=== PATIENT | female | born 1975 | race Caucasian/White ===

== ENCOUNTER 2019-02-18 16:00 | Inpatient (IN) | payer MEDICAID ==
--- NOTE | 2019-02-18 16:52 | ED ---
Psychiatric Complaint - HPI Summary HPI Summary: Patient is a 43yo F presenting to the ED with suicidal ideation. Patient states she has been feeling this way for quite some time, however has had 2 attempted overdoses in the past 2 days. She states she has had 2 attempted overdoses using her gabapentin. She states it was worse yesterday as it was Mother's Day and her 5 kids were taken away from her by her ex- recently. She is also not been on her bipolar medications as she cannot afford the medications. She does not currently have health insurance and has been without these medications for several months. She endorses severe depression and anxiety. She does take Xanax 0.5 mg 4 times daily, but has also not been taking this. She has a friend at bedside. She denies any alcohol or drug use. She does not currently have a counselor and would like to see somebody today. She is also requesting an admission due to her severe depression, suicidal ideation and suicidal attempts. - History Of Current Complaint Chief Complaint: EDSuicidal Time Seen by Provider: 02/18/19 16:31 Hx Obtained From: Patient ?: No Onset/Duration: Sudden Onset Timing: Constant Severity Initially: Severe Severity Currently: Severe Aggravating Factor(s): Nothing Alleviating Factor(s): Nothing Associated Signs And Symptoms: Positive: Negative Related History: Positive For: Prior Psychiatric Issues Has Suicidal: Reports: Thoughts, With A Plan, Demonstrates Gesture - Risk Factor(s) Completed Suicide Risk Factors: Negative - Allergies/Home Medications Allergies/Adverse Reactions: Allergies Allergy/AdvReac Type Severity Reaction Status Date / Time codeine Allergy Rash Verified 02/18/19 16:06 Sulfa (Sulfonamide Allergy Rash Verified 02/18/19 16:06 Antibiotics) nuts Allergy Swelling Uncoded 02/18/19 16:06 Of Face,Lips,& Throat PMH/Surg Hx/FS Hx/Imm Hx Previously Healthy: Yes - Immunization History Hx Pertussis Vaccination: No Immunizations Up to Date: Yes Infectious Disease History: No Infectious Disease History: Denies: Traveled Outside the [place] in Last 30 Days - Social History Occupation: Unemployed Lives: With Family Alcohol Use: None Hx Substance Use: No Substance Use Type: Reports: None Hx Tobacco Use: No Smoking Status (MU): Never Smoked Tobacco Review of Systems Constitutional: Negative Negative: Fever, Chills, Fatigue, Skin Diaphoresis Negative: Palpitations, Chest Pain Negative: Shortness Of Breath, Cough Negative: Abdominal Pain, Vomiting, Diarrhea, Nausea Genitourinary: Negative Positive: no symptoms reported, see HPI Negative: Arthralgia, Myalgia Skin: Negative Positive: Anxious, Depressed All Other Systems Reviewed And Are Negative: Yes - consciousness Physical Exam Triage Information Reviewed: Yes Vital Signs On Initial Exam: Initial Vitals Temp Pulse Resp BP Pulse Ox 97.8 F 78 18 178/84 97 02/18/19 16:02 02/18/19 16:02 02/18/19 16:02 02/18/19 16:02 02/18/19 16:02 Vital Signs Reviewed: Yes Appearance: Positive: Well-Appearing, Well-Nourished Skin: Positive: Warm, Skin Color Reflects Adequate Perfusion Head/Face: Positive: Normal Head/Face Inspection Eyes: Positive: EOMI, KELLEE, Conjunctiva Clear Neck: Positive: Supple, No Lymphadenopathy Respiratory/Lung Sounds: Positive: Clear to Auscultation, Breath Sounds Present Cardiovascular: Positive: Pulses are Symmetrical in both Upper and Lower Extremities Musculoskeletal: Positive: Normal, Strength/ROM Intact Neurological: Positive: Speech Normal Psychiatric: Positive: Anxious AVPU Assessment: Alert Diagnostics - Vital Signs Vital Signs Temp Pulse Resp BP Pulse Ox 02/18/19 16:02 97.8 F 78 18 178/84 97 - Laboratory Result Diagrams: 02/18/19 16:54 Lab Statement: Any lab studies that have been ordered have been reviewed, and results considered in the medical decision making process. Course/Dx - Course Course Of Treatment: During the course of treatment, the patient is evaluated for suicidal ideation, attempts and severe depression. She states she took a handful of her gabapentin yesterday, however this had no effect on her and she denies any symptoms. She denies any chest pain, shortness of breath, physical pain or urinary symptoms. She is currently suicidal. Denies HI. She denies any harm to herself. Friend is at bedside. She is cleared for mental health evaluation at 5:15 PM. She will be signed out to Alvina Blakely PA-C pending mental health eval. - Differential Dx/Clinical Impression Differential Diagnosis/HQI/PQRI: Positive: Bipolar Disorder, Depression, Suicide Attempt, Suicidal Ideation, Suicidal Gesture Provider Diagnosis: Suicide gesture Discharge - Sign-Out/Discharge Documenting (check all that apply): Sign-Out Patient Signing out patient TO: Rosanna Blakely Patient Received Moderate/Deep Sedation with Procedure: No - Discharge Plan Condition: Fair Referrals: Garo Keys PA [Primary Care Provider] - - Billing Disposition and Condition Condition: FAIR
[2019-02-18 17:02] LABS: Hematocrit 40 % (35-47); Hemoglobin 12.8 g/dL (12.0-16.0); Mean Corpuscular HGB Conc 33 g/dL (31-36); Mean Corpuscular Hemoglobin 25 pg (27-31); Mean Corpuscular Volume 77 fL (80-97); Platelet Count 177 10^3/uL (150-450); Red Blood Count 5.12 10^6 /uL (3.70-4.87); Red Cell Distribution Width 18 % (10.5-15); White Blood Count 10.1 10^3/uL (3.5-10.8)
[2019-02-18 17:08] LABS: Urine Appearance Clear; Urine Bacteria Absent (Absent); Urine Bilirubin Negative (Negative); Urine Blood 2+ (Negative); Urine Color Yellow; Urine Glucose Negative (Negative); Urine Ketones Negative (Negative); Urine Nitrite Negative (Negative); Urine Protein Negative (Negative); Urine Red Blood Cell Trace(0-2/hpf) (Absent); Urine Specific Gravity 1.005 (1.010-1.030); Urine Squamous Epithelial Cell Present (Absent); Urine Urobilinogen Negative (Negative); Urine White Blood Cell Trace(0-5/hpf) (Absent)
[2019-02-18 17:26] LABS: ABS Basophils 0.1 10^3/ul (0-0.2); ABS Eosinophils 0.1 10^3/ul (0-0.6); ABS Lymphocytes 2.7 10^3/ul (1.0-4.8); ABS Monocytes 0.8 10^3/ul (0-0.8); ABS Neutrophils 6.4 10^3/ul (1.5-7.7); Eosinophil % 1.3 %; Lymphocyte % 26.9 %
--- NOTE | 2019-02-18 17:30 | ED ---
Progress - Progress Note Progress Note: patient signed out by Nunu WESTFALL pending mental health evaluation. Course/Dx - Course Course Of Treatment: During the course of treatment, the patient is evaluated for suicidal ideation, attempts and severe depression. She states she took a handful of her gabapentin yesterday, however this had no effect on her and she denies any symptoms. She denies any chest pain, shortness of breath, physical pain or urinary symptoms. She is currently suicidal. Denies HI. She denies any harm to herself. Friend is at bedside. She is cleared for mental health evaluation at 5:15 PM. patient is still pending MHE and will be signed out to dr vásquez for disposition. - Diagnoses Provider Diagnoses: Suicide gesture Discharge - Sign-Out/Discharge Documenting (check all that apply): Sign-Out Patient, Receiving Sign-Out Signing out patient TO: Eliu Vásquez Receiving patient FROM: Nunu Ignacio - Discharge Plan Condition: Fair Referrals: Garo Keys PA [Primary Care Provider] - - Billing Disposition and Condition Condition: FAIR
[2019-02-18 17:32] LABS: Alcohol < 10 mg/dL (<10); Salicylate < 2.50 mg/dL (<30)
[2019-02-18 17:44] LABS: Albumin 4.3 g/dL (3.2-5.2); Anion Gap 8 mmol/L (2-11); CO2 Carbon Dioxide 28 mmol/L (22-32); Calcium 9.6 mg/dL (8.6-10.3); Chloride 104 mmol/L (101-111); Potassium 3.2 mmol/L (3.5-5.0); Sodium 140 mmol/L (135-145)
[2019-02-18 17:45] LABS: TSH (Thyroid Stimulating Horm) 2.95 mcIU/mL (0.34-5.60)
[2019-02-18 17:47] LABS: ALT 25 U/L (7-52); AST 24 U/L (13-39); Acetaminophen < 15 mcg/mL; Albumin/Globulin Ratio 1.6 (1-3); Alkaline Phosphatase 105 U/L (34-104); BUN/Creatinine Ratio 7.4 (8-20); Blood Urea Nitrogen 4 mg/dL (6-24); EGFR African American 150.5 (>60); EGFR Non-African American 124.4 (>60); Globulin 2.7 g/dL (2-4); Glucose 92 mg/dL (70-100)
[2019-02-18 18:39] LABS: Urine Benzodiazepine Screen Presumptive Positive (None Detect); Urine Opiates Screen None Detected (None Detect)
[2019-02-18] MEDS ORDERED: PARoxetine HCL TAB* 10 MG PO ONE (20:03)
[2019-02-18] MEDS ORDERED: Gabapentin CAP(*) 300 MG PO ONE (20:03)
[2019-02-18] MEDS ORDERED: ALPRAZolam TAB* 0.25 MG PO ONE (20:03)
[2019-02-18] MEDS: Nicotine* 4MG (FRUIT FLAVOR) GUM PO PRN (20:52)
--- NOTE | 2019-02-19 03:03 | ED ---
Progress - Progress Note Progress Note: Receiving sign out from MALOU Pastor, pending MHE. Pt's condition has been stable. She is admitted with a final dx of mood disorder NOS as per Dr. Pan. Course/Dx - Diagnoses Provider Diagnoses: Unspecified mood [affective] disorder - Provider Notifications Discussed Care Of Patient With: Eugene Pan Time Discussed With Above Provider: 05:07 Instructed by Provider To: Admit As Inpatient - Pt is admitted with a final dx of mood disorder NOS. Discharge - Sign-Out/Discharge Documenting (check all that apply): Patient Departure - Admit, Receiving Sign- Out Receiving patient FROM: Rosanna Blakely Patient Received Moderate/Deep Sedation with Procedure: No - Discharge Plan Condition: Fair [place] [place] Disposition and Condition Condition: FAIR Disposition: [place] [facility] [place] Attestation Statements Document Initiated by Scribe: Yes Documenting Scribe: Violet Chapman Provider For Whom Scribe is Documenting (Include Credential): Eliu Vásquez MD Scribe Attestation: Violet Combs scribed for Eliu Vásquez MD on 02/19/19 at 0630. Scribe Documentation Reviewed: Yes Provider Attestation: The documentation as recorded by the Violet garcia accurately reflects the service I personally performed and the decisions made by Eliu thornton MD Status of Scribe Document: Viewed
[2019-02-19] MEDS: Nicotine* 4MG (FRUIT FLAVOR) GUM PO PRN ×4 (03:13→20:53)
[2019-02-19] MEDS ORDERED: Acetaminophen TAB* 325 MG PO PRN (06:29)
[2019-02-19] MEDS ORDERED: Al Hydrox/Mg Hydrox/Simet LIQ* 30 ML UDC PO PRN (06:29)
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
[2019-02-19] MEDS: Vitamin THERAPEUTIC TAB PO SCH (09:06)
[2019-02-19] MEDS: Nicotine PATCH 14 MG/24 HR* PATCH TRANSDERM SCH (10:19)
[2019-02-19] MEDS ORDERED: Potassium Chlor TAB* 20 MEQ TAB.ER PO SCH (11:00)
[2019-02-19 12:14] LABS: HCG Pregnancy < 0.60 mIU/mL
[2019-02-19] MEDS: PARoxetine HCL TAB* 20 MG PO SCH (13:30)
[2019-02-19] MEDS: ALPRAZolam TAB* 0.5 MG PO PRN ×2 (13:31→20:53)
[2019-02-19] MEDS: Potassium Chloride* LIQUID 20 MEQ/15 ML UDC PO SCH ×2 (18:33→22:05)
[2019-02-19] MEDS: Lurasidone(*) 40 MG TAB PO SCH (20:53)
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
[2019-02-20 06:13] LABS: BUN/Creatinine Ratio 27.5 (8-20); Calcium 9.1 mg/dL (8.6-10.3); EGFR African American 160.8 (>60); EGFR Non-African American 132.9 (>60); HDL Cholesterol 18.3 mg/dL
[2019-02-20 06:14] LABS: Potassium 2.7 mmol/L (3.5-5.0)
[2019-02-20] MEDS ORDERED: Potassium Chlor TAB* 20 MEQ TAB.ER PO ONE (06:23)
--- NOTE | 2019-02-20 06:26 | PN ---
Progress Note - Progress Note Date of Service: 02/20/19 Note: Cross Cover Note: Patient seen yesterday by hospitalist service for chest pain and hypokalemia. Potassium was prescribed but declined by patient and today potassium level lower. 80 meq potassium prescribed this AM with a repeat BMP ordered for 1600. MHU to call hospitalist service if patient refuses potassium so we may coordinate with MHU provider if needed.
[2019-02-20] MEDS: Vitamin THERAPEUTIC TAB PO SCH (09:09)
[2019-02-20] MEDS: Nicotine PATCH 14 MG/24 HR* PATCH TRANSDERM SCH (09:09)
[2019-02-20] MEDS: PARoxetine HCL TAB* 20 MG PO SCH (09:10)
[2019-02-20] MEDS: ALPRAZolam TAB* 0.5 MG PO PRN ×2 (09:11→20:47)
[2019-02-20] MEDS: Nicotine* 4MG (FRUIT FLAVOR) GUM PO PRN ×3 (09:12→20:48)
--- NOTE | 2019-02-20 09:55 | PN ---
Subjective - Subjective Date of Service: 02/20/19 Service Type: 08322 Hosp care 35 min high complexity Subjective: Nursing Report: Patient was visible on unit, no behavioral incidents overnight. CC: "I am doing better Patient was seen and evaluated today in the common room. The patient was seen and evaluated by medical team for low potassium. She stated that she was having trouble swallowing the potassium pills earlier however was able to do it on a second attempt. She reported that she wants to get better. Patient ate her morning meal. Patient denied purging, but reported a long history of restricting her diet to only salads. Patient reported that she is tolerating medications without side effects. She denied homicidal ideation intent or plan. She denied auditory and or visual hallucinations. Objective - General Observations Appears Stated Age: Yes Stature: Thin Posture: Slumped Eye Contact: Average Behavior/Activity: WNL - Interaction Observations Attitude Towards Examiner: Cooperative Stated Mood: Dysphoric Affect: Blunted Speech Pattern/Tone: Clear Thought Process: Coherent Thought Content: Self-Deprecatory Thought Process: Lethality: Passive Wish Hallucination Type: Denies Delusion Type: Denies - Cognitive Function Orientation: A&O x 4 Level of Consciousness: Awake Ability to Make Reasonable Decisions: Moderately Impaired - Medication Compliance Cooperative with Inpatient Medication Regimen: Yes - Group Participation Participates in Group Activities: No Assessment - Assessment Merits Inpatient Hospitalization: For Immediate Safety Clinical Impression: 43 year old white female with a history of depression presented after overdose of gabapentin Plan - Plan Treatment Plan: Name: TANISHA COATES Birthdate: 1975 [id number] # Q15 minute observation. # The patient requires inpatient admission at this time to assure safety, receive treatment and work toward stabilization. #Medicine team consulted to address medical issues. Hypokalemia- 2.7 management per medicine team, hospital team determined that patient can be treated on the BSU and doesnt require transfer to medical floor. At this time the patient is compliant with taking potassium supplement. Reasons for low potassium may include low calorie/ low carbohydrate diet. # Continue to monitor vital signs # Obtain collateral information once release is signed. # Collaboration with Social Work # MMPI #Latuda 40mg daily with food. Will continue Latuda as it is not known to cause Hypokalemia like some other anti-psychotics namely risperdone, seroquel and zyprexa. # Continue paxil 20mg daily and alprazolam 0.5mg Q6H #Tobacco use disorder: Nicotine supplement offered and put in place. #Goals before discharge include: Mood stabilization Sodium 140 mmol/L (135-145) 02/20/19 05:40 Potassium 2.7 mmol/L (3.5-5.0) L* 02/20/19 05:40 BUN 14 mg/dL (6-24) 02/20/19 05:40 Creatinine 0.51 mg/dL (0.51-0.95) 02/20/19 05:40 Calcium 9.1 mg/dL (8.6-10.3) 02/20/19 05:40 AST 24 U/L (13-39) 02/18/19 16:54 ALT 25 U/L (7-52) 02/18/19 16:54 Triglycerides 118 mg/dL 02/20/19 05:40 Cholesterol 133 mg/dL 02/20/19 05:40 LDL Cholesterol 91 mg/dL 02/20/19 05:40 Vital Signs Temp Pulse Resp BP Pulse Ox 97.2 F 61 16 110/58 99 02/20/19 08:01 02/20/19 08:01 02/20/19 09:11 02/20/19 08:01 02/20/19 08:01 Continued Medication Management: Continue Outpt Medication Medications: Current Medications Acetaminophen (Tylenol Tab*) 650 mg PO Q4H PRN PRN Reason: PAIN or TEMP > 101 F Al Hydrox/Mg Hydrox/Simethicone (Maalox Plus*) 30 ml PO Q4H PRN PRN Reason: INDIGESTION Alprazolam (Xanax Tab*) 0.5 mg PO Q6H PRN PRN Reason: AGITATION/ANXIETY Last Admin: 02/20/19 09:11 Dose: 0.5 mg Lurasidone HCl (Latuda) 40 mg PO 1700 [facility] Last Admin: 02/19/19 20:53 Dose: 40 mg Multivitamins (Theragran Tab*) 1 tab PO DAILY [facility] Last Admin: 02/20/19 09:09 Dose: Not Given Nicotine (Nicotine Patch 14 Mg/24 Hr*) 1 patch TRANSDERM DAILY@0800 [facility] Last Admin: 02/20/19 09:09 Dose: 1 patch Nicotine Polacrilex (Nicotine Gum*) 4 mg PO Q2H PRN PRN Reason: CRAVINGS Last Admin: 02/20/19 09:12 Dose: 4 mg Paroxetine HCl (Paxil Tab*) 20 mg PO DAILY [facility] Last Admin: 02/20/19 09:10 Dose: 20 mg Pharmacy Profile Note (Nicotine Patch Removal Note*) 1 note PATCH OFF 2100 [facility] - Discharge Plan Discharge Plan: Inpatient Hospitalization
--- NOTE | 2019-02-20 16:42 | PN ---
Progress Note - Progress Note Date of Service: 02/20/19 Note: Discussed case with Dr. Batista and nursing staff today. Patient has now taken the appropriate replacement (80meq) for her potassium of 2.7. Her EKG shows a HR 50s. Plan to repeat BMP this afternoon and continue repletion as needed.
[2019-02-20] MEDS: Lurasidone(*) 40 MG TAB PO SCH (17:48)
[2019-02-20 20:29] LABS: BUN/Creatinine Ratio 19.2 (8-20); Calcium 10.1 mg/dL (8.6-10.3); EGFR African American 98.5 (>60); EGFR Non-African American 81.4 (>60); Potassium 4.1 mmol/L (3.5-5.0)
[2019-02-20] MEDS: Nicotine Patch Removal NOTE PATCH OFF SCH (20:45)
[2019-02-21] MEDS: Nicotine Patch Removal NOTE PATCH OFF SCH ×2 (03:06→20:58)
[2019-02-21 08:27] LABS: Magnesium 1.4 mg/dL (1.9-2.7)
[2019-02-21 08:58] LABS: Potassium 3.7 mmol/L (3.5-5.0)
[2019-02-21] MEDS: Nicotine* 4MG (FRUIT FLAVOR) GUM PO PRN (10:02)
[2019-02-21] MEDS: Nicotine PATCH 14 MG/24 HR* PATCH TRANSDERM SCH (10:02)
[2019-02-21] MEDS: PARoxetine HCL TAB* 20 MG PO SCH (10:02)
[2019-02-21] MEDS: Magnesium Oxide TAB* 400 MG PO SCH ×2 (10:02→20:58)
[2019-02-21] MEDS: Vitamin THERAPEUTIC TAB PO SCH (10:03)
--- NOTE | 2019-02-21 11:15 | PN ---
Subjective - Subjective Date of Service: 02/21/19 Service Type: 34861 Hosp care 35 min high complexity Subjective: Nursing Report: Patient was visible on unit, no chemical restraints or PRNs. Slept overnight without incident. Not attending group activities. CC: "I feel somewhat better Patient was seen and evaluated today in the common room. The patient was observed eating breakfast. She reported having an adequate appetite and sleep. Per nursing no behavioral issues or overnight events reported. Patient reported that she is tolerating medications without side effects. She is worried about her health and her lab results. She wants to focus on getting better for her children. She reported that her anxiety is less and she is starting to feel closer to herself again. Objective - General Observations Appears Stated Age: Yes Stature: WNL Posture: WNL Eye Contact: Average Behavior/Activity: WNL - Interaction Observations Attitude Towards Examiner: Cooperative Stated Mood: Dysphoric Affect: Blunted Speech Pattern/Tone: Clear Thought Process: Coherent Thought Content: Depressive Thought Process: Lethality: Passive Wish Hallucination Type: Denies Delusion Type: Denies - Cognitive Function Orientation: A&O x 4 Level of Consciousness: Awake Judgment Within Normal Limits: No Ability to Make Reasonable Decisions: Mildly Impaired - Medication Compliance Cooperative with Inpatient Medication Regimen: Yes - Group Participation Participates in Group Activities: No Assessment - Assessment Merits Inpatient Hospitalization: For Immediate Safety Clinical Impression: 43 year old white female with a history of depression presented after overdose of gabapentin Plan - Plan Treatment Plan: Name: TANISHA COATES Birthdate: 1975 [id number] # Q30 minute observation. # The patient requires inpatient admission at this time to assure safety, receive treatment and work toward stabilization. #Medical issues per management of hospitalist team hypomagnesemia (Mg 1.4) # Continue to monitor vital signs # Obtain collateral information once release is signed. # Collaboration with Social Work # MMPI #Latuda 40mg daily with food. # Continue paxil 20mg daily and alprazolam 0.5mg Q6H #Tobacco use disorder: Nicotine supplement offered and put in place. #Goals before discharge include: Mood stabilization Vital Signs Temp Pulse Resp BP Pulse Ox 96.3 F 49 16 94/60 100 02/21/19 08:09 02/21/19 08:09 02/21/19 08:09 02/21/19 08:09 02/21/19 08:09 Laboratory Results - last 24 hr 02/20/19 02/21/19 19:57 07:32 Sodium 142 Potassium 4.1 3.7 Chloride 106 Carbon Dioxide 30 Anion Gap 6 BUN 15 Creatinine 0.78 Est GFR ( Amer) 98.5 Est GFR (Non-Af Amer) 81.4 BUN/Creatinine Ratio 19.2 Glucose 107 H Calcium 10.1 Magnesium 1.4 L Continued Medication Management: Continue Outpt Medication Medications: Current Medications Acetaminophen (Tylenol Tab*) 650 mg PO Q4H PRN PRN Reason: PAIN or TEMP > 101 F Al Hydrox/Mg Hydrox/Simethicone (Maalox Plus*) 30 ml PO Q4H PRN PRN Reason: INDIGESTION Alprazolam (Xanax Tab*) 0.5 mg PO Q6H PRN PRN Reason: AGITATION/ANXIETY Last Admin: 02/20/19 20:47 Dose: 0.5 mg Ibuprofen (Motrin Tab*) 400 mg PO Q6H PRN PRN Reason: PAIN Lurasidone HCl (Latuda) 40 mg PO 1700 [facility] Last Admin: 02/20/19 17:48 Dose: 40 mg Magnesium Oxide (Magox 400 Tab*) 400 mg PO BID [facility] Last Admin: 02/21/19 10:02 Dose: 400 mg Multivitamins (Theragran Tab*) 1 tab PO DAILY [facility] Last Admin: 02/21/19 10:03 Dose: Not Given Nicotine (Nicotine Patch 14 Mg/24 Hr*) 1 patch TRANSDERM DAILY@0800 [facility] Last Admin: 02/21/19 10:02 Dose: 1 patch Nicotine Polacrilex (Nicotine Gum*) 4 mg PO Q2H PRN PRN Reason: CRAVINGS Last Admin: 02/21/19 10:02 Dose: 4 mg Paroxetine HCl (Paxil Tab*) 20 mg PO DAILY [facility] Last Admin: 02/21/19 10:02 Dose: 20 mg Pharmacy Profile Note (Nicotine Patch Removal Note*) 1 note PATCH OFF 2100 [facility] Last Admin: 02/21/19 03:06 Dose: Not Given - Discharge Plan Discharge Plan: Inpatient Hospitalization
[2019-02-21] MEDS: ALPRAZolam TAB* 0.5 MG PO PRN ×2 (13:10→20:59)
[2019-02-21] MEDS: Lurasidone(*) 40 MG TAB PO SCH (17:39)
--- NOTE | 2019-02-21 18:54 | PN ---
Subjective Date of Service: 02/21/19 Interval History: Evaluated on MHU. Reports chest pain is unchanged and remains the same in consistency and severity for the past 10 yrs. Reports aggravating symptoms include stress. Denies alleviating symptoms. Denies sob, palpitations, nausea, vomiting, diaphoresis. Reports generalized chronic pain is worse recently since psych has held her gabapentin since she attempted to OD on it. Objective Active Medications: Acetaminophen (Tylenol Tab*) 650 mg PO Q4H PRN PRN Reason: PAIN or TEMP > 101 F Al Hydrox/Mg Hydrox/Simethicone (Maalox Plus*) 30 ml PO Q4H PRN PRN Reason: INDIGESTION Alprazolam (Xanax Tab*) 0.5 mg PO Q6H PRN PRN Reason: AGITATION/ANXIETY Last Admin: 02/21/19 13:10 Dose: 0.5 mg Ibuprofen (Motrin Tab*) 400 mg PO Q6H PRN PRN Reason: PAIN Lurasidone HCl (Latuda) 40 mg PO 1700 [facility] Last Admin: 02/21/19 17:39 Dose: 40 mg Magnesium Oxide (Magox 400 Tab*) 400 mg PO BID [facility] Last Admin: 02/21/19 10:02 Dose: 400 mg Multivitamins (Theragran Tab*) 1 tab PO DAILY [facility] Last Admin: 02/21/19 10:03 Dose: Not Given Nicotine (Nicotine Patch 14 Mg/24 Hr*) 1 patch TRANSDERM DAILY@0800 [facility] Last Admin: 02/21/19 10:02 Dose: 1 patch Nicotine Polacrilex (Nicotine Gum*) 4 mg PO Q2H PRN PRN Reason: CRAVINGS Last Admin: 02/21/19 10:02 Dose: 4 mg Paroxetine HCl (Paxil Tab*) 20 mg PO DAILY [facility] Last Admin: 02/21/19 10:02 Dose: 20 mg Pharmacy Profile Note (Nicotine Patch Removal Note*) 1 note PATCH OFF 2100 [facility] Last Admin: 02/21/19 03:06 Dose: Not Given Vital Signs - 8 hr 02/21/19 02/21/19 02/21/19 13:10 13:38 17:40 Respiratory 18 16 16 Rate Oxygen Devices in Use Now: None Appearance: Comfortable, NAD Eyes: No Scleral Icterus Ears/Nose/Mouth/Throat: Clear Oropharnyx, Mucous Membranes Moist Neck: NL Appearance and Movements; NL JVP Respiratory: Symmetrical Chest Expansion and Respiratory Effort, Clear to Auscultation Cardiovascular: NL Sounds; No Murmurs; No JVD, RRR, No Edema Abdominal: NL Sounds; No Tenderness; No Distention Lymphatic: No Cervical Adenopathy Extremities: No Edema Neurological: Alert and Oriented x 3 - Nutrition: Malnutrition Diagnosis/Plan Malnutrition Assessment by Registered Dietitian: Malnutrition Assessment Clinical Characteristics Chronic,Severe Malnutrition Assessment: - 43% wt loss x past 8 months Criteria - < 75% estimated energy expenditure > 1 month Malnutrition Assessment: Will trial Ensure Enlive today w/ lunch. Ensure Interventions Enlive: 350 kcals, 20 grams protein per serving. Malnutrition Assessment: Goals 1. Adequate PO intake to promote wt repletion and maintain hydration Result Diagrams: 02/18/19 16:54 02/21/19 07:32 Additional Lab and Data: Laboratory Results - last 24 hr 02/20/19 02/21/19 19:57 07:32 Sodium 142 Potassium 4.1 3.7 Chloride 106 Carbon Dioxide 30 Anion Gap 6 BUN 15 Creatinine 0.78 Est GFR ( Amer) 98.5 Est GFR (Non-Af Amer) 81.4 BUN/Creatinine Ratio 19.2 Glucose 107 H Calcium 10.1 Magnesium 1.4 L Microbiology and Other Data: . Assess/Plan/Problems-Billing Assessment: 43 yr old female admitted to MHU after OD. C/O chest pain x 10 yrs therefore hospitalist consulted. - Patient Problems (1) Chest pain Comment: - No change in 10 yrs. - Trops negative. - EKGs revealed sinus ana. No ST changes - ASCVD 4%, therefore, patient would benefit from lifestyle changes including quiting smoking. - Follow up with cardiology outpatient for further evaluation and possible stress test. (2) Hypokalemia Comment: - Resolved after replacement - Recommend rechecking in 3 to 5 days. (3) Hypomagnesemia Comment: - 1.4 - PO replacement ordered, which she can continue after discharge and follow up in a 1 to 2 wks with PCP for recheck of magnesem level (4) Weight loss Comment: - Per patient she has had 100 lb weight loss which was intentional. - Follow up with pcp (5) Mental health problem Comment: - Per Psych Status and Disposition: Thank you for allowing us to participate in the care of this patient. We will be signing off, but we will be available as needed. Attending: Pamella Velasco
[2019-02-22] MEDS: Nicotine PATCH 14 MG/24 HR* PATCH TRANSDERM SCH (08:29)
[2019-02-22] MEDS: Magnesium Oxide TAB* 400 MG PO SCH ×2 (08:29→20:33)
[2019-02-22] MEDS: PARoxetine HCL TAB* 20 MG PO SCH (08:29)
[2019-02-22] MEDS: Vitamin THERAPEUTIC TAB PO SCH (08:30)
--- NOTE | 2019-02-22 11:20 | PN ---
BSU: Group Therapy Note - Service Type Service Type: 06271 Group Psychotherapy - Cognitive Behavioral Group Therapy ( CBT):Patient was attentive and participatory in CBT programming this morning, and remained in good behavioral control. Patient expressed positive insights regarding relevant treatment interventions and goals.
--- NOTE | 2019-02-22 15:15 | PN ---
Subjective - Subjective Date of Service: 02/22/19 Service Type: [id number] Hosp care 35 min high complexity Subjective: Nursing Report: Patient was visible on unit, no chemical restraints or PRNs. Slept overnight without incident. Not attending group activities. CC: "Alright Patient was seen and evaluated today in the common room. The patient was observed eating breakfast. She reported having an adequate appetite and sleep. Per nursing no behavioral issues or overnight events reported. Patient reported that she is tolerating medications without side effects. She is reassured by knowing her potassium level is normal. She doesnt want to live in a homeless correction and rather return to live in a tent. Objective - General Observations Appears Stated Age: Yes Stature: WNL Posture: WNL Eye Contact: Average Behavior/Activity: WNL, Slowed - Interaction Observations Attitude Towards Examiner: Cooperative Affect: Blunted Speech Pattern/Tone: Normal Volume Thought Process: Coherent Thought Content: Depressive Hallucination Type: None Delusion Type: None - Cognitive Function Orientation: A&O x 4 Level of Consciousness: Awake - Medication Compliance Cooperative with Inpatient Medication Regimen: Yes - Group Participation Participates in Group Activities: Partial Assessment - Assessment Clinical Impression: 43 year old white female with a history of depression presented after overdose of gabapentin Plan - Plan Treatment Plan: Name: TANISHA COATES Birthdate: 1975 [id number] # Q30 minute observation with staff pass # The patient requires inpatient admission at this time to assure safety, receive treatment and work toward stabilization. #Medical issues per management of hospitalist team hypomagnesemia (Mg 1.4) # Continue to monitor vital signs # Obtain collateral information once release is signed. # Collaboration with Social Work # MMPI #Latuda 40mg daily with food. #Start Gabapentin 300mg TID # Continue paxil 20mg daily and alprazolam 0.5mg Q6H #Tobacco use disorder: Nicotine supplement offered and put in place. #Goals before discharge include: Mood stabilization Sodium 142 mmol/L (135-145) 02/20/19 19:57 Potassium 3.7 mmol/L (3.5-5.0) 02/21/19 07:32 BUN 15 mg/dL (6-24) 02/20/19 19:57 Creatinine 0.78 mg/dL (0.51-0.95) 02/20/19 19:57 Calcium 10.1 mg/dL (8.6-10.3) 02/20/19 19:57 Magnesium 1.4 mg/dL (1.9-2.7) L 02/21/19 07:32 AST 24 U/L (13-39) 02/18/19 16:54 ALT 25 U/L (7-52) 02/18/19 16:54 Triglycerides 118 mg/dL 02/20/19 05:40 Cholesterol 133 mg/dL 02/20/19 05:40 LDL Cholesterol 91 mg/dL 02/20/19 05:40 Vital Signs Temp Pulse Resp BP Pulse Ox 98.5 F 52 16 115/70 99 02/22/19 07:39 02/22/19 07:39 02/22/19 20:33 02/22/19 07:39 02/22/19 07:39 Continued Medication Management: Continue Outpt Medication Medications: Current Medications Acetaminophen (Tylenol Tab*) 650 mg PO Q4H PRN PRN Reason: PAIN or TEMP > 101 F Last Admin: 02/21/19 20:58 Dose: 650 mg Al Hydrox/Mg Hydrox/Simethicone (Maalox Plus*) 30 ml PO Q4H PRN PRN Reason: INDIGESTION Alprazolam (Xanax Tab*) 0.5 mg PO Q6H PRN PRN Reason: AGITATION/ANXIETY Last Admin: 02/21/19 20:59 Dose: 0.5 mg Gabapentin (Neurontin Cap(*)) 300 mg PO TID [facility] Ibuprofen (Motrin Tab*) 400 mg PO Q6H PRN PRN Reason: PAIN Lurasidone HCl (Latuda) 40 mg PO 1700 [facility] Last Admin: 02/21/19 17:39 Dose: 40 mg Magnesium Oxide (Magox 400 Tab*) 400 mg PO BID [facility] Last Admin: 02/22/19 08:29 Dose: 400 mg Multivitamins (Theragran Tab*) 1 tab PO DAILY [facility] Last Admin: 02/22/19 08:30 Dose: Not Given Nicotine (Nicotine Patch 14 Mg/24 Hr*) 1 patch TRANSDERM DAILY@0800 [facility] Last Admin: 02/22/19 08:29 Dose: 1 patch Nicotine Polacrilex (Nicotine Gum*) 4 mg PO Q2H PRN PRN Reason: CRAVINGS Last Admin: 02/21/19 10:02 Dose: 4 mg Paroxetine HCl (Paxil Tab*) 20 mg PO DAILY [facility] Last Admin: 02/22/19 08:29 Dose: 20 mg Pharmacy Profile Note (Nicotine Patch Removal Note*) 1 note PATCH OFF 2099 [facility] Last Admin: 02/21/19 20:58 Dose: 1 note - Discharge Plan Discharge Plan: Inpatient Hospitalization
[2019-02-22] MEDS: Ibuprofen TAB* 400 MG PO PRN (16:52)
[2019-02-22] MEDS: Lurasidone(*) 40 MG TAB PO SCH (17:19)
[2019-02-22] MEDS: Nicotine* 4MG (FRUIT FLAVOR) GUM PO PRN (19:09)
[2019-02-22] MEDS: Gabapentin CAP(*) 300 MG PO SCH (20:33)
[2019-02-22] MEDS: ALPRAZolam TAB* 0.5 MG PO PRN (20:33)
[2019-02-22] MEDS: Nicotine Patch Removal NOTE PATCH OFF SCH (22:38)
[2019-02-23] MEDS: Nicotine PATCH 14 MG/24 HR* PATCH TRANSDERM SCH (09:29)
[2019-02-23] MEDS: Gabapentin CAP(*) 300 MG PO SCH ×3 (09:29→20:16)
[2019-02-23] MEDS: Vitamin THERAPEUTIC TAB PO SCH (09:30)
[2019-02-23] MEDS: Magnesium Oxide TAB* 400 MG PO SCH ×2 (09:30→20:16)
[2019-02-23] MEDS: PARoxetine HCL TAB* 20 MG PO SCH (09:30)
[2019-02-23] MEDS: Ibuprofen TAB* 400 MG PO PRN (16:52)
[2019-02-23] MEDS: Lurasidone(*) 40 MG TAB PO SCH (17:46)
[2019-02-23] MEDS: ALPRAZolam TAB* 0.5 MG PO PRN (20:17)
[2019-02-23] MEDS: Nicotine Patch Removal NOTE PATCH OFF SCH (20:52)
[2019-02-24] MEDS: Nicotine PATCH 14 MG/24 HR* PATCH TRANSDERM SCH (09:36)
[2019-02-24] MEDS: Gabapentin CAP(*) 300 MG PO SCH ×3 (09:37→20:47)
[2019-02-24] MEDS: PARoxetine HCL TAB* 20 MG PO SCH (09:37)
[2019-02-24] MEDS: Magnesium Oxide TAB* 400 MG PO SCH ×2 (09:37→20:46)
[2019-02-24] MEDS: Vitamin THERAPEUTIC TAB PO SCH (09:39)
--- NOTE | 2019-02-24 17:21 | PN ---
Subjective - Subjective Date of Service: 02/24/19 Service Type: 64069 Hosp care 15 min low complexity Subjective: Modesta is eager to discharge home, which she reports is a tent across the road. She denies need of any order from me to adjust meds or otherwise change her planof care. She reports doing well, with stable mood and no perceptual or thought disorder. She is pleasant and well engaged in our meeting, having graciously agreed to interrupt her dinner to meet. She reports good sleep and appetite. She reports she was engaged while on the unit, that her now fiance got down on his knees to propose. Objective - General Observations Appearance: Neat Appears Stated Age: Yes Stature: WNL Posture: WNL Eye Contact: Average Behavior/Activity: WNL - Interaction Observations Attitude Towards Examiner: Cooperative Stated Mood: Euthymic Affect: Full Speech Pattern/Tone: Clear Thought Process: Coherent Perception: WNL Thought Content: WNL Hallucination Type: None Delusion Type: None - Cognitive Function Orientation: A&O x 4 Level of Consciousness: Alert Cognition: WNL Estimated Intelligence: Normal - Medication Compliance Cooperative with Inpatient Medication Regimen: Yes - Group Participation Participates in Group Activities: Yes Assessment - Assessment Merits Inpatient Hospitalization: For Stabilization, Consolidate Improvements, For Discharge Planning Clinical Impression: 43 year old white female with a history of depression presented after overdose of gabapentin Plan - Plan Treatment Plan: Name: MODESTA COATES Birthdate: 1975 [id number] # Q30 minute observation with staff pass # The patient requires inpatient admission at this time to assure safety, receive treatment and work toward stabilization. #Medical issues per management of hospitalist team hypomagnesemia (Mg 1.4) # Continue to monitor vital signs # Obtain collateral information once release is signed. # Collaboration with Social Work # MMPI #Latuda 40mg daily with food. #Start Gabapentin 300mg TID # Continue paxil 20mg daily and alprazolam 0.5mg Q6H #Tobacco use disorder: Nicotine supplement offered and put in place. #Goals before discharge include: Mood stabilization Temp Pulse Resp BP Pulse Ox 99.0 F 58 16 115/63 100 02/24/19 08:04 02/24/19 08:04 02/24/19 16:23 02/24/19 08:04 02/24/19 08:04 Laboratory Last Values WBC 10.1 10^3/uL (3.5-10.8) 02/18/19 16:54 RBC 5.12 10^6 /uL (3.70-4.87) H 02/18/19 16:54 Hgb 12.8 g/dL (12.0-16.0) 02/18/19 16:54 Hct 40 % (35-47) 02/18/19 16:54 MCV 77 fL (80-97) L 02/18/19 16:54 MCH 25 pg (27-31) L 02/18/19 16:54 MCHC 33 g/dL (31-36) 02/18/19 16:54 RDW 18 % (10.5-15) H 02/18/19 16:54 Plt Count 177 10^3/uL (150-450) 02/18/19 16:54 MPV 11.0 fL (7.4-10.4) H 02/18/19 16:54 Neut % (Auto) 63.0 % 02/18/19 16:54 Lymph % (Auto) 26.9 % 02/18/19 16:54 Divide % (Auto) 8.3 % 02/18/19 16:54 Eos % (Auto) 1.3 % 02/18/19 16:54 Baso % (Auto) 0.5 % 02/18/19 16:54 Absolute Neuts (auto) 6.4 10^3/ul (1.5-7.7) 02/18/19 16:54 Absolute Lymphs (auto) 2.7 10^3/ul (1.0-4.8) 02/18/19 16:54 Absolute Monos (auto) 0.8 10^3/ul (0-0.8) 02/18/19 16:54 Absolute Eos (auto) 0.1 10^3/ul (0-0.6) 02/18/19 16:54 Absolute Basos (auto) 0.1 10^3/ul (0-0.2) 02/18/19 16:54 Absolute Nucleated RBC 0.0 10^3/ul 02/18/19 16:54 Nucleated RBC % 0.0 02/18/19 16:54 Sodium 142 mmol/L (135-145) 02/20/19 19:57 Potassium 3.7 mmol/L (3.5-5.0) 02/21/19 07:32 Chloride 106 mmol/L (101-111) 02/20/19 19:57 Carbon Dioxide 30 mmol/L (22-32) 02/20/19 19:57 Anion Gap 6 mmol/L (2-11) 02/20/19 19:57 BUN 15 mg/dL (6-24) 02/20/19 19:57 Creatinine 0.78 mg/dL (0.51-0.95) 02/20/19 19:57 Est GFR ( Amer) 98.5 (>60) 02/20/19 19:57 Est GFR (Non-Af Amer) 81.4 (>60) 02/20/19 19:57 BUN/Creatinine Ratio 19.2 (8-20) 02/20/19 19:57 Glucose 107 mg/dL (70-100) H 02/20/19 19:57 Calcium 10.1 mg/dL (8.6-10.3) 02/20/19 19:57 Magnesium 1.4 mg/dL (1.9-2.7) L 02/21/19 07:32 Total Bilirubin 0.90 mg/dL (0.2-1.0) 02/18/19 16:54 AST 24 U/L (13-39) 02/18/19 16:54 ALT 25 U/L (7-52) 02/18/19 16:54 Alkaline Phosphatase 105 U/L (34-104) H 02/18/19 16:54 Troponin I 0.00 ng/mL (<0.04) 02/20/19 05:40 Total Protein 7.0 g/dL (6.4-8.9) 02/18/19 16:54 Albumin 4.3 g/dL (3.2-5.2) 02/18/19 16:54 Globulin 2.7 g/dL (2-4) 02/18/19 16:54 Albumin/Globulin Ratio 1.6 (1-3) 02/18/19 16:54 Triglycerides 118 mg/dL 02/20/19 05:40 Cholesterol 133 mg/dL 02/20/19 05:40 LDL Cholesterol 91 mg/dL 02/20/19 05:40 HDL Cholesterol 18.3 mg/dL 02/20/19 05:40 TSH 2.95 mcIU/mL (0.34-5.60) 02/18/19 16:54 Beta HCG, Quant < 0.60 mIU/mL 02/18/19 16:54 Urine Color Yellow 02/18/19 16:38 Urine Appearance Clear 02/18/19 16:38 Urine pH 5.0 (5-9) 02/18/19 16:38 Ur Specific [place] 1.005 (1.010-1.030) L 02/18/19 16:38 Urine Protein Negative (Negative) 02/18/19 16:38 Urine Ketones Negative (Negative) 02/18/19 16:38 Urine Blood 2+ (Negative) A 02/18/19 16:38 Urine Nitrate Negative (Negative) 02/18/19 16:38 Urine Bilirubin Negative (Negative) 02/18/19 16:38 Urine Urobilinogen Negative (Negative) 02/18/19 16:38 Ur Leukocyte Esterase Negative (Negative) 02/18/19 16:38 Urine WBC (Auto) Trace(0-5/hpf) (Absent) 02/18/19 16:38 Urine RBC (Auto) Trace(0-2/hpf) (Absent) 02/18/19 16:38 Ur Squamous Epith Cells Present (Absent) A 02/18/19 16:38 Urine Bacteria Absent (Absent) 02/18/19 16:38 Urine Glucose Negative (Negative) 02/18/19 16:38 Salicylates < 2.50 mg/dL (<30) 02/18/19 16:54 Urine Opiates Screen None detected (None Detect) 02/18/19 16:38 Acetaminophen < 15 mcg/mL 02/18/19 16:54 Ur Barbiturates Screen None detected (None Detect) 02/18/19 16:38 Ur Phencyclidine Scrn None detected (None Detect) 02/18/19 16:38 Ur Amphetamines Screen None detected (None Detect) 02/18/19 16:38 U Benzodiazepines Scrn Presumptive positive (None Detect) A 02/18/19 16:38 Urine Cocaine Screen None detected (None Detect) 02/18/19 16:38 U Cannabinoids Screen None detected (None Detect) 02/18/19 16:38 Serum Alcohol < 10 mg/dL (<10) 02/18/19 16:54 Medications: Current Medications Acetaminophen (Tylenol Tab*) 650 mg PO Q4H PRN PRN Reason: PAIN or TEMP > 101 F Last Admin: 02/21/19 20:58 Dose: 650 mg Al Hydrox/Mg Hydrox/Simethicone (Maalox Plus*) 30 ml PO Q4H PRN PRN Reason: INDIGESTION Alprazolam (Xanax Tab*) 0.5 mg PO Q6H PRN PRN Reason: AGITATION/ANXIETY Last Admin: 02/23/19 20:17 Dose: 0.5 mg Gabapentin (Neurontin Cap(*)) 300 mg PO TID [facility] Last Admin: 02/24/19 14:08 Dose: 300 mg Ibuprofen (Motrin Tab*) 400 mg PO Q6H PRN PRN Reason: PAIN Last Admin: 02/23/19 16:52 Dose: 400 mg Lurasidone HCl (Latuda) 40 mg PO 1700 [facility] Last Admin: 02/23/19 17:46 Dose: 40 mg Magnesium Oxide (Magox 400 Tab*) 400 mg PO BID [facility] Last Admin: 02/24/19 09:37 Dose: 400 mg Multivitamins (Theragran Tab*) 1 tab PO DAILY [facility] Last Admin: 02/24/19 09:39 Dose: Not Given Nicotine (Nicotine Patch 14 Mg/24 Hr*) 1 patch TRANSDERM DAILY@0800 [facility] Last Admin: 02/24/19 09:36 Dose: 1 patch Nicotine Polacrilex (Nicotine Gum*) 4 mg PO Q2H PRN PRN Reason: CRAVINGS Last Admin: 02/22/19 19:09 Dose: 4 mg Paroxetine HCl (Paxil Tab*) 20 mg PO DAILY [facility] Last Admin: 02/24/19 09:37 Dose: 20 mg Pharmacy Profile Note (Nicotine Patch Removal Note*) 1 note PATCH OFF 2100 [facility] Last Admin: 02/23/19 20:52 Dose: 1 note
[2019-02-24] MEDS: Lurasidone(*) 40 MG TAB PO SCH (18:08)
[2019-02-24] MEDS: ALPRAZolam TAB* 0.5 MG PO PRN (20:46)
[2019-02-24] MEDS: Nicotine Patch Removal NOTE PATCH OFF SCH (20:49)
[2019-02-25 08:35] LABS: Albumin 4.2 g/dL (3.2-5.2); Albumin/Globulin Ratio 1.6 (1-3); BUN/Creatinine Ratio 21.7 (8-20); Calcium 9.8 mg/dL (8.6-10.3); EGFR African American 113.4 (>60); EGFR Non-African American 93.8 (>60); Globulin 2.7 g/dL (2-4); Potassium 4.5 mmol/L (3.5-5.0); Total Bilirubin 0.4 mg/dL (0.2-1.0); Total Protein 6.9 g/dL (6.4-8.9)
[2019-02-25 08:56] VITALS: BP 90/61
[2019-02-25] MEDS: Magnesium Oxide TAB* 400 MG PO SCH (09:41)
[2019-02-25] MEDS: PARoxetine HCL TAB* 20 MG PO SCH (09:41)
[2019-02-25] MEDS: Vitamin THERAPEUTIC TAB PO SCH (09:41)
[2019-02-25] MEDS: Gabapentin CAP(*) 300 MG PO SCH ×2 (09:41→14:33)
[2019-02-25] MEDS: Nicotine PATCH 14 MG/24 HR* PATCH TRANSDERM SCH (09:42)
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
[2019-02-25] MEDS: Ibuprofen TAB* 400 MG PO PRN (12:42)
== END 2019-02-25 15:35 | disposition home or self-care (01) | DRG 753 ==
LOC: ED 16:00 → BSU 02-19 04:50
PROVIDERS: ADMIT Psychiatry & Neurology Psychiatry; ATTEND Psychiatry & Neurology Psychiatry
PROC: GZHZZZZ Group Psychotherapy (ICD-10-PCS; principal; 2019-02-22)
DX: F31.30 Bipolar disorder, current episode depressed, mild or moderate severity, unspecified (principal); E44.1 Mild protein-calorie malnutrition; T42.6X2A Poisoning by other antiepileptic and sedative-hypnotic drugs, intentional self-harm, initial encounter; F43.10 Post-traumatic stress disorder, unspecified; F41.0 Panic disorder [episodic paroxysmal anxiety]; F60.3 Borderline personality disorder; F17.210 Nicotine dependence, cigarettes, uncomplicated; E87.6 Hypokalemia; R07.9 Chest pain, unspecified; M06.9 Rheumatoid arthritis, unspecified; F40.10 Social phobia, unspecified; E83.42 Hypomagnesemia; Z91.5 Personal history of self-harm; Z88.2 Allergy status to sulfonamides; Z91.018 Allergy to other foods; Z56.0 Unemployment, unspecified; Y92.009 Unspecified place in unspecified non-institutional (private) residence as the place of occurrence of the external cause; Z81.8 Family history of other mental and behavioral disorders; Z81.3 Family history of other psychoactive substance abuse and dependence; Z81.1 Family history of alcohol abuse and dependence; Z91.410 Personal history of adult physical and sexual abuse; Z59.0 Homelessness; Z88.6 Allergy status to analgesic agent; Z87.11 Personal history of peptic ulcer disease; Z87.442 Personal history of urinary calculi; Z68.22 Body mass index [BMI] 22.0-22.9, adult; Z82.49 Family history of ischemic heart disease and other diseases of the circulatory system; Z83.3 Family history of diabetes mellitus; Z80.49 Family history of malignant neoplasm of other genital organs
CPT/HCPCS: 36415; 80048; 80053; 80061; 80307; 80320; 80329; 81003; 81015; 83735; 84132; 84443; 84484; 84702; 85025; 87086; 90853; 93005; 99222; 99231; 99233; 99238; 99284; A9270-GY; G0480

== ENCOUNTER 2019-03-20 19:19 | Inpatient (IN) | payer MEDICAID, OTHER ==
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
[2019-03-20] MEDS ORDERED: NS 0.9% 1000 ML** 1,000 ML IV ONE (19:35)
[2019-03-20] MEDS ORDERED: Charcoal ACTIVATED* 25 GM/120 ML BTL PO ONE (19:36)
[2019-03-20] MEDS ORDERED: Ondansetron INJ* 2 MG/ML VIAL IV ONE (20:02)
[2019-03-20 20:14] LABS: ABS Basophils 0.1 10^3/ul (0-0.2); ABS Eosinophils 0.1 10^3/ul (0-0.6); ABS Lymphocytes 2.3 10^3/ul (1.0-4.8); ABS Monocytes 0.6 10^3/ul (0-0.8); ABS Neutrophils 7.1 10^3/ul (1.5-7.7); Eosinophil % 1.4 %; Hematocrit 35 % (35-47); Hemoglobin 11.7 g/dL (12.0-16.0); Lymphocyte % 22.2 %; Mean Corpuscular HGB Conc 33 g/dL (31-36); Mean Corpuscular Hemoglobin 26 pg (27-31); Mean Corpuscular Volume 77 fL (80-97); Mean Platelet Volume 10.9 fL (7.4-10.4); Platelet Count 175 10^3/uL (150-450); Red Blood Count 4.57 10^6 /uL (3.70-4.87); Red Cell Distribution Width 18 % (10-15); White Blood Count 10.2 10^3/uL (3.5-10.8)
[2019-03-20 20:37] LABS: ALT 35 U/L (7-52); AST 33 U/L (13-39); Albumin 3.8 g/dL (3.2-5.2); Albumin/Globulin Ratio 1.6 (1-3); Alkaline Phosphatase 91 U/L (34-104); Anion Gap 6 mmol/L (2-11); BUN/Creatinine Ratio 16.9 (8-20); Blood Urea Nitrogen 10 mg/dL (6-24); CO2 Carbon Dioxide 27 mmol/L (22-32); Calcium 9.3 mg/dL (8.6-10.3); Chloride 105 mmol/L (101-111); EGFR African American 135.9 (>60); EGFR Non-African American 112.3 (>60); Globulin 2.4 g/dL (2-4); Glucose 108 mg/dL (70-100); HCG Pregnancy 1.63 mIU/mL; Magnesium 1.4 mg/dL (1.9-2.7); Potassium 3.8 mmol/L (3.5-5.0); Sodium 138 mmol/L (135-145); Total Protein 6.2 g/dL (6.4-8.9)
[2019-03-20 21:00] LABS: Acetaminophen < 15 mcg/mL; Alcohol < 10 mg/dL (<10); Salicylate < 2.50 mg/dL (<30)
[2019-03-20 21:15] LABS: TSH (Thyroid Stimulating Horm) 3.34 mcIU/mL (0.34-5.60)
[2019-03-20 21:19] LABS: Urine Appearance Cloudy; Urine Bacteria Absent (Absent); Urine Bilirubin Negative (Negative); Urine Blood 1+ (Negative); Urine Color Yellow; Urine Glucose Negative (Negative); Urine Ketones Negative (Negative); Urine Nitrite Negative (Negative); Urine Protein Negative (Negative); Urine Red Blood Cell 1+(3-5/hpf) (Absent); Urine Specific Gravity 1.006 (1.010-1.030); Urine Squamous Epithelial Cell Present (Absent); Urine Urobilinogen Negative (Negative); Urine White Blood Cell 1+(6-10/hpf) (Absent)
[2019-03-20 21:40] LABS: Urine Benzodiazepine Screen None Detected (None Detect); Urine Opiates Screen None Detected (None Detect)
[2019-03-20] MEDS ORDERED: Magnesium Sulfate 2 GM IV* 2 GM/50 ML BAG IVPB ONE (23:31)
[2019-03-21] MEDS ORDERED: Acetaminophen TAB* 325 MG PO PRN (04:02)
[2019-03-21] MEDS ORDERED: Al Hydrox/Mg Hydrox/Simet LIQ* 30 ML UDC PO PRN (04:02)
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
[2019-03-21 11:14] LABS: ALT 32 U/L (7-52); AST 26 U/L (13-39); Albumin 3.6 g/dL (3.2-5.2); Albumin/Globulin Ratio 1.3 (1-3); Alkaline Phosphatase 86 U/L (34-104); Anion Gap 5 mmol/L (2-11); BUN/Creatinine Ratio 16.4 (8-20); Blood Urea Nitrogen 10 mg/dL (6-24); CO2 Carbon Dioxide 25 mmol/L (22-32); Calcium 9.1 mg/dL (8.6-10.3); Chloride 110 mmol/L (101-111); EGFR African American 130.8 (>60); EGFR Non-African American 108.1 (>60); Globulin 2.7 g/dL (2-4); Glucose 107 mg/dL (70-100); Potassium 3.9 mmol/L (3.5-5.0); Sodium 140 mmol/L (135-145); Total Protein 6.3 g/dL (6.4-8.9)
[2019-03-21 11:18] LABS: HCG Pregnancy < 0.60 mIU/mL
[2019-03-21] MEDS: ALPRAZolam TAB* 0.5 MG PO SCH ×3 (11:25→21:14)
[2019-03-21] MEDS: Magnesium Oxide TAB* 400 MG PO SCH (11:25)
[2019-03-21] MEDS: Gabapentin CAP(*) 300 MG PO SCH ×3 (11:26→21:15)
[2019-03-21] MEDS: Vitamin THERAPEUTIC TAB PO SCH (11:28)
[2019-03-21] MEDS ORDERED: Lurasidone(*) 40 MG TAB PO SCH (17:00)
[2019-03-21] MEDS: Lurasidone(*) 60 MG TAB PO SCH (17:53)
[2019-03-21] MEDS: Nicotine Patch Removal NOTE FOLLOW UP SCH (21:17)
[2019-03-22] MEDS: ALPRAZolam TAB* 0.5 MG PO SCH ×3 (09:03→20:18)
[2019-03-22] MEDS: Magnesium Oxide TAB* 400 MG PO SCH (09:03)
[2019-03-22] MEDS: Nicotine PATCH 14 MG/24 HR* PATCH TRANSDERM SCH (09:04)
[2019-03-22] MEDS: PARoxetine HCL TAB* 20 MG PO SCH (09:04)
[2019-03-22] MEDS: Gabapentin CAP(*) 300 MG PO SCH ×3 (09:04→20:19)
[2019-03-22] MEDS: Vitamin THERAPEUTIC TAB PO SCH (09:07)
--- NOTE | 2019-03-22 12:03 | PN ---
BSU: Group Therapy Note - Service Type Service Type: 66583 Group Psychotherapy - Cognitive Behavioral Group Therapy ( CBT):Patient attended CBT programming this morning and presented with flat affect that did not vary with discussion. Although responsive to direct prompts to respond to questions, patient did not engage in spontaneous conversation.
--- NOTE | 2019-03-22 12:17 | PN ---
Subjective - Subjective Date of Service: 03/22/19 Service Type: 01184 Hosp care 35 min high complexity Subjective: Nursing Report: Patient was visible on unit, no chemical restraints or PRNs. Slept overnight without incident. Attending some group activities. CC: "I am doing better Patient was seen and evaluated today in the common room. She reported feeling that she has more energy today. The patient reported she feels safe on the unit and is interacting with peers. She reported having an adequate appetite and sleep. She plans to attend the groups today. She is inquiring about housing options after discharge. Per nursing no behavioral issues or overnight events reported. Patient reported that she is tolerating medications without side effects. Objective - General Observations Appearance: Neat Appears Stated Age: Yes Stature: WNL Posture: WNL Behavior/Activity: WNL - Interaction Observations Attitude Towards Examiner: Anxious Stated Mood: Dysphoric Affect: Blunted Speech Pattern/Tone: Clear Thought Process: Loose Associations Perception: WNL Thought Content: WNL, Self-Deprecatory Thought Process: Lethality: Passive Wish Hallucination Type: None Delusion Type: None - Cognitive Function Orientation: A&O x 4 Level of Consciousness: Awake Cognition: WNL - Medication Compliance Cooperative with Inpatient Medication Regimen: Yes - Group Participation Participates in Group Activities: Yes Assessment - Assessment Clinical Impression: 43 year old female presented after a suicide attempt by overdosing with pills. Plan - Plan Treatment Plan: Name: TANISHA COATES Birthdate: 1975 [id number] Plan #Q30 minute observation. Encourage participation in activities on the milieu. # The patient requires inpatient admission at this time to assure safety, receive treatment and work toward stabilization. # Collaboration with Social Work # Hypomagnesemia (Mg 1.4) Ordered magnesium oxide 800mg daily x 2 doses # Continue Latuda 60mg daily with food # Continue paxil 20mg daily #Tobacco use disorder: Nicotine supplement offered and put in place. #Goals before discharge include: Mood stabilization Continued Medication Management: Continue Outpt Medication Medications: Current Medications Acetaminophen (Tylenol Tab*) 650 mg PO Q4H PRN PRN Reason: PAIN or TEMP > 101 F Al Hydrox/Mg Hydrox/Simethicone (Maalox Plus*) 30 ml PO Q4H PRN PRN Reason: INDIGESTION Alprazolam (Xanax Tab*) 0.5 mg PO TID [facility] Last Admin: 03/22/19 09:03 Dose: 0.5 mg Gabapentin (Neurontin Cap(*)) 300 mg PO TID [facility] Last Admin: 03/22/19 09:04 Dose: 300 mg Lurasidone HCl (Latuda) 60 mg PO 1700 [facility] Last Admin: 03/21/19 17:53 Dose: 60 mg Multivitamins (Theragran Tab*) 1 tab PO DAILY [facility] Last Admin: 03/22/19 09:07 Dose: Not Given Nicotine (Nicotine Patch 14 Mg/24 Hr*) 1 patch TRANSDERM DAILY [facility] Last Admin: 03/22/19 09:04 Dose: 1 patch Nicotine Polacrilex (Nicotine Gum*) 2 mg PO Q2H PRN PRN Reason: CRAVINGS Paroxetine HCl (Paxil Tab*) 20 mg PO DAILY [facility] Last Admin: 03/22/19 09:04 Dose: 20 mg Pharmacy Profile Note (Nicotine Patch Removal Note*) 1 note FOLLOW UP 2099 [facility] Last Admin: 03/21/19 21:17 Dose: Not Given - Discharge Plan Discharge Plan: Inpatient Hospitalization
[2019-03-22] MEDS: Nicotine* 2MG (FRUIT FLAVOR) GUM PO PRN (16:20)
[2019-03-22] MEDS: Lurasidone(*) 60 MG TAB PO SCH (17:06)
[2019-03-22] MEDS: Nicotine Patch Removal NOTE FOLLOW UP SCH (20:20)
[2019-03-23] MEDS: Nicotine PATCH 14 MG/24 HR* PATCH TRANSDERM SCH (09:28)
[2019-03-23] MEDS: Gabapentin CAP(*) 300 MG PO SCH ×3 (09:28→20:48)
[2019-03-23] MEDS: PARoxetine HCL TAB* 20 MG PO SCH (09:28)
[2019-03-23] MEDS: ALPRAZolam TAB* 0.5 MG PO SCH ×3 (09:28→20:48)
[2019-03-23] MEDS: Vitamin THERAPEUTIC TAB PO SCH (09:30)
[2019-03-23] MEDS: Nicotine* 2MG (FRUIT FLAVOR) GUM PO PRN ×3 (13:12→19:11)
[2019-03-23] MEDS: Lurasidone(*) 60 MG TAB PO SCH (18:08)
[2019-03-23] MEDS: Nicotine Patch Removal NOTE FOLLOW UP SCH (22:01)
[2019-03-24] MEDS: ALPRAZolam TAB* 0.5 MG PO SCH ×3 (09:52→20:03)
[2019-03-24] MEDS: PARoxetine HCL TAB* 20 MG PO SCH (09:52)
[2019-03-24] MEDS: Vitamin THERAPEUTIC TAB PO SCH (09:52)
[2019-03-24] MEDS: Nicotine PATCH 14 MG/24 HR* PATCH TRANSDERM SCH (09:53)
[2019-03-24] MEDS: Gabapentin CAP(*) 300 MG PO SCH ×3 (09:53→20:02)
[2019-03-24] MEDS ORDERED: Magnesium Oxide TAB* 400 MG PO ONE (10:37)
[2019-03-24] MEDS: Nicotine* 2MG (FRUIT FLAVOR) GUM PO PRN (11:07)
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
[2019-03-24] MEDS: Lurasidone(*) 60 MG TAB PO SCH (20:02)
[2019-03-25 09:42] VITALS: BP 104/58
[2019-03-25] MEDS: ALPRAZolam TAB* 0.5 MG PO SCH ×3 (10:08→20:07)
[2019-03-25] MEDS: Gabapentin CAP(*) 300 MG PO SCH ×3 (10:08→20:06)
[2019-03-25] MEDS: PARoxetine HCL TAB* 20 MG PO SCH (10:08)
[2019-03-25] MEDS: Nicotine PATCH 14 MG/24 HR* PATCH TRANSDERM SCH (10:09)
[2019-03-25] MEDS: Vitamin THERAPEUTIC TAB PO SCH (10:09)
--- NOTE | 2019-03-25 11:41 | PN ---
BSU: Group Therapy Note - Service Type Service Type: 23700 Group Psychotherapy - Cognitive Behavioral Group Therapy ( CBT):Patient was attentive and participatory in CBT programming this morning, and remained in good behavioral control. Patient expressed positive insights regarding relevant treatment interventions and goals.
--- NOTE | 2019-03-25 11:50 | PN ---
Subjective - Subjective Date of Service: 03/25/19 Service Type: 10869 Hosp care 35 min high complexity Subjective: Nursing Report: Patient was visible on unit, no chemical restraints or PRNs. Slept overnight without incident. Attending group activities. CC: "I am doing better Patient was seen and evaluated today in the common room. The patient reported she feels safe on the unit and is interacting with peers. She reported having an adequate appetite and sleep. The patient reports attending and participating in day groups. Per nursing no behavioral issues or overnight events reported. Patient reported that she is tolerating medications without side effects. She is looking forward to getting a new job and plans to to start tomorrow morning. She is on good terms with her boyfriend and plans to spend more time with her children upon discharge. Objective - General Observations Appears Stated Age: Yes Stature: WNL Posture: Slumped Eye Contact: Average Behavior/Activity: WNL - Interaction Observations Attitude Towards Examiner: Cooperative Stated Mood: Euthymic Affect: Blunted Speech Pattern/Tone: Clear Thought Process: Coherent Perception: WNL Thought Content: WNL Hallucination Type: None Delusion Type: None - Cognitive Function Orientation: A&O x 4 Level of Consciousness: Awake - Medication Compliance Cooperative with Inpatient Medication Regimen: Yes - Group Participation Participates in Group Activities: Yes Assessment - Assessment Clinical Impression: 43 year old female presented after a suicide attempt by overdosing with pills. Plan - Plan Treatment Plan: Name: TANISHA COATES Birthdate: 1975 [id number] Plan #Q30 minute observation. Staff pass. Encourage participation in activities on the milieu. # The patient requires inpatient admission at this time to assure safety, receive treatment and work toward stabilization. # Collaboration with Program Consultant # Continue Latuda 60mg daily with food # Continue paxil 20mg daily #Tobacco use disorder: Nicotine supplement offered and put in place. #Goals before discharge include: Mood stabilization Tentative discharge Tomorrow at 830am Vital Signs Temp Pulse Resp BP Pulse Ox 98.2 F 73 16 104/58 100 03/25/19 08:00 03/25/19 08:00 03/25/19 13:36 03/25/19 08:00 03/25/19 08:00 Sodium 140 mmol/L (135-145) 03/21/19 10:48 Potassium 3.9 mmol/L (3.5-5.0) 03/21/19 10:48 BUN 10 mg/dL (6-24) 03/21/19 10:48 Creatinine 0.61 mg/dL (0.51-0.95) 03/21/19 10:48 Calcium 9.1 mg/dL (8.6-10.3) 03/21/19 10:48 Magnesium 1.7 mg/dL (1.9-2.7) L 03/23/19 08:20 AST 26 U/L (13-39) 03/21/19 10:48 ALT 32 U/L (7-52) 03/21/19 10:48 Continued Medication Management: Continue Outpt Medication Medications: Current Medications Acetaminophen (Tylenol Tab*) 650 mg PO Q4H PRN PRN Reason: PAIN or TEMP > 101 F Al Hydrox/Mg Hydrox/Simethicone (Maalox Plus*) 30 ml PO Q4H PRN PRN Reason: INDIGESTION Alprazolam (Xanax Tab*) 0.5 mg PO TID [facility] Last Admin: 03/25/19 10:08 Dose: 0.5 mg Gabapentin (Neurontin Cap(*)) 300 mg PO TID [facility] Last Admin: 03/25/19 10:08 Dose: 300 mg Lurasidone HCl (Latuda) 60 mg PO 1700 [facility] Last Admin: 03/24/19 20:02 Dose: 60 mg Multivitamins (Theragran Tab*) 1 tab PO DAILY [facility] Last Admin: 03/25/19 10:09 Dose: Not Given Nicotine (Nicotine Patch 14 Mg/24 Hr*) 1 patch TRANSDERM DAILY [facility] Last Admin: 03/25/19 10:09 Dose: 1 patch Nicotine Polacrilex (Nicotine Gum*) 2 mg PO Q2H PRN PRN Reason: CRAVINGS Last Admin: 03/24/19 11:07 Dose: 2 mg Paroxetine HCl (Paxil Tab*) 20 mg PO DAILY [facility] Last Admin: 03/25/19 10:08 Dose: 20 mg Pharmacy Profile Note (Nicotine Patch Removal Note*) 1 note FOLLOW UP 2100 [facility] Last Admin: 03/23/19 22:01 Dose: 1 note - Discharge Plan Discharge Plan: Inpatient Hospitalization
[2019-03-25] MEDS: Nicotine Patch Removal NOTE FOLLOW UP SCH ×2 (13:36→20:08)
[2019-03-25] MEDS: Nicotine* 2MG (FRUIT FLAVOR) GUM PO PRN (16:15)
[2019-03-25] MEDS: Lurasidone(*) 60 MG TAB PO SCH (17:32)
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
== END 2019-03-26 08:25 | disposition home or self-care (01) | DRG 753 ==
LOC: ED 19:19 → BSU 03-21 02:30
PROVIDERS: ADMIT Psychiatry & Neurology Psychiatry; ATTEND Psychiatry & Neurology Psychiatry
DX: F31.30 Bipolar disorder, current episode depressed, mild or moderate severity, unspecified (principal); R45.851 Suicidal ideations; E83.42 Hypomagnesemia; F43.10 Post-traumatic stress disorder, unspecified; F41.0 Panic disorder [episodic paroxysmal anxiety]; F60.3 Borderline personality disorder; F17.210 Nicotine dependence, cigarettes, uncomplicated; Z79.899 Other long term (current) drug therapy; Z81.8 Family history of other mental and behavioral disorders; Z81.1 Family history of alcohol abuse and dependence; Z81.3 Family history of other psychoactive substance abuse and dependence; Z88.2 Allergy status to sulfonamides; Z88.5 Allergy status to narcotic agent; Z91.018 Allergy to other foods
CPT/HCPCS: 36415; 80053; 80307; 80320; 80329; 81003; 81015; 83605; 83735; 84443; 84702; 85025; 87086; 90853; 93005; 99222; 99232; 99233; 99238; 99284; A9270-GY; G0480; J2405; J3475